=== PATIENT | male | born 1995 | race African-American/Black ===

== ENCOUNTER 2017-11-13 12:08 | Emergency (ER) | payer OTHER ==
[2017-11-13] MEDS ORDERED: NEOSPORIN OINT 0.9 GM PKT (FLOOR STOCK) As Ordered (13:07)
== END 2017-11-13 13:14 | disposition home or self-care (01) ==
LOC: M ED 12:08
DX: S61.012A Laceration without foreign body of left thumb without damage to nail, initial encounter (principal); W46.1XXA Contact with contaminated hypodermic needle, initial encounter; Y92.59 Other trade areas as the place of occurrence of the external cause; Y99.0 Civilian activity done for income or pay
CPT/HCPCS: 99283

== ENCOUNTER 2020-02-25 00:37 | Emergency (ER) | payer OTHER ==
[~2020-02-25] VITALS: Ht 177.8 cm; Wt 112.3 kg
[~2020-02-25 00:37] MED LIST: KEFL500C17 PO; NO MEDICATIONS
[2020-02-25] MEDS ORDERED: CIPRODEX OTIC SUSP 7.5ML AU STA (01:50)
[2020-02-25] MEDS ORDERED: CIPRODEX OTIC (01:52)
[2020-02-25 01:58] VITALS: BP 118/89
== END 2020-02-25 02:17 | disposition home or self-care (01) ==
LOC: M ED 00:37
DX: H61.22 Impacted cerumen, left ear (principal); H60.90 Unspecified otitis externa, unspecified ear